=== PATIENT | female | born 1960 | race African-American/Black ===

== ENCOUNTER 2019-11-02 09:27 | Emergency (ER) | payer OTHER, SELFPAY ==
[2019-11-02 09:33] VITALS: BP 132/89; PULSE 72; RESP 20; TEMP 36.3; O2SAT 99
--- NOTE | 2019-11-02 09:41 | ED.SKABFB ---
HPI - Skin/Abscess/Foreign Bdy General Chief complaint: Skin/Abscess/Foreign Body Stated complaint: boil on back Time Seen by Provider: 11/02/19 09:46 Source: patient Mode of arrival: ambulatory Limitations: no limitations History of Present Illness HPI narrative: PATIENT PRESENTS WITH TENDER AREA TO LEFT UPPER BACK. PATENT STATES HAS HAD AN ABSCESS REMOVED FOR OPPOSITE SIDE 4 MONTHS AGO. NO DRAINAGE NO STREAKING. NO FEVER PATIENT DENIES ANY HISTORY OF DIABETES. Related Data Home Medications Medication Instructions Recorded Confirmed risperidone 3 mg PO DAILY 11/02/19 11/02/19 trazodone 50 mg PO HS 11/02/19 11/02/19 Allergies Allergy/AdvReac Type Severity Reaction Status Date / Time ibuprofen Allergy Hives Verified 11/02/19 09:46 Review of Systems Review of Systems: Narrative: CONSTITUTIONAL: Denies fever, chills, or sweats. EYES: Denies visual changes, redness, or discharge. ENT: Denies rhinorrhea, congestion, sore throat, or otalgia. CARDIOVASCULAR: Denies chest pain, palpitations, or edema. RESPIRATORY: Denies cough or dyspnea. GASTROINTESTINAL: Denies abdominal pain, nausea, vomiting, or diarrhea. GENITOURINARY: Denies dysuria or hematuria. SKIN: Denies rash or itching. Tender area to left upper back MUSCULOSKELETAL: Denies back pain, joint pain, or myalgia. NEUROLOGIC: Denies headache, numbness, or weakness. PSYCHIATRIC: Denies anxiety or depression. PMFSH Comments At time of signature, agree with nursing past medical, surgical, social and family history. There is no relevant family history pertinent to the presenting complaint Exam Narrative: Exam Narrative: GENERAL: Well-appearing, well-nourished, and in no acute distress. HEAD: Normocephalic, atraumatic. EYES: PERRLA and EOMI. ENT: Nares clear, no rhinorrhea or epistaxis. Mucous membranes moist. NECK: Supple. CHEST: Clear to auscultation. No respiratory distress. HEART: Regular rate and rhythm. No murmur heard. Normal peripheral pulses. ABDOMEN: Soft, nontender, nondistended, normal active bowel sounds. EXTREMITIES: Normal range of motion. No edema. SKIN: Warm, dry, no rash.3 CM AREA OF REDNESS AND TENDERNESS TO LEFT UPPER BACK BELOW SCAPULA. NO INJURATION NO FLUCTUANCE NO INDICATION FOR i&d NEURO: No focal deficits. Alert and oriented x3. Mele Coma Scale Eye Opening: Spontaneous 4 [place] Coma Scale Motor: Obeys Commands 6 [place] Coma Scale Verbal: Oriented 5 [place] Coma Scale Total 15 Course Vital Signs Vital signs: Vital Signs Temperature 36.3 C L 11/02/19 09:33 Pulse Rate 72 11/02/19 09:33 Respiratory Rate 20 11/02/19 09:33 Blood Pressure 132/89 11/02/19 09:33 Pulse Oximetry 99 11/02/19 09:33 Temperature 36.3 C L 11/02/19 09:33 Pulse Rate 72 11/02/19 09:33 Respiratory Rate 20 11/02/19 09:33 Blood Pressure 132/89 11/02/19 09:33 Pulse Oximetry 99 11/02/19 09:33 Addressed elevated BP today. Today's blood pressure higher than recommended range. Discussed importance of follow -up with PCP and possible bed bug exterminator effects/cardiovascular events related to HTN. Currently patient denies headache, dizziness, vision changes, CP or shortness of breath. MDM - Skin/Abscess/Foreign Bdy Differential Diagnosis Differential diagnosis: Likely abscess of skin or subcutaneous tissue, dermatophytosis, eczema, insect bites and impetigo Critical Care Time Critical Care Time Critical Care Time: No Discharge Plan Discharge Clinical Impression: Abscess of skin or subcutaneous tissue Patient Disposition: Home, Self-Care Condition: Stable Instructions: Antibiotic Form Additional Instructions: Warm compresses to the area 20-30 minutes 4-6 times a day and as needed elevate the area if possible antibiotic as directed--finish the medicine tylenol for pain watch for increasing infection--redness, swelling, drainage if the wound was packed--remove the packing in 2 days follow up with PCP in 2-4 days for a
== END 2019-11-02 09:55 | disposition home or self-care (01) ==
PROVIDERS: Emergency Provider Nurse Practitioner Family; PCP Family Medicine
DX: L02.212 Cutaneous abscess of back [any part, except buttock and flank] (principal); F32.9 Major depressive disorder, single episode, unspecified
CPT/HCPCS: 99213; G0463

== ENCOUNTER 2021-05-24 17:09 | Emergency (ER) | payer OTHER, SELFPAY ==
[2021-05-24 17:15] VITALS: BP 148/81; PULSE 74; RESP 20; TEMP 37.1; O2SAT 100
--- NOTE | 2021-05-24 17:26 | ED.FEMALEGU ---
HPI - Female Genitourinary General Chief complaint: Urogenital-Female Stated complaint: Urinary Problem Time Seen by Provider: 05/24/21 17:26 Source: patient History of Present Illness HPI Narrative: URINARY FREQUENCY AND URGENCY FOR THE PAST 2 DAYS. NO GROSS HEMATURIA NO FLANK PAIN MD elicited complaint: dysuria and UTI Related Data Home Medications Medication Instructions Recorded Confirmed trazodone 50 mg PO HS 11/02/19 05/24/21 fluticasone propion-salmeterol 2 inh INHALATION BID 05/24/21 05/24/21 [Wixela Inhub] risperidone 2 mg PO DAILY 05/24/21 05/24/21 Allergies Allergy/AdvReac Type Severity Reaction Status Date / Time ibuprofen Allergy Mild Hives Verified 05/24/21 17:18 Review of Systems Review of Systems: CONSTITUTIONAL: Denies fever, chills, or sweats. EYES: Denies visual changes, redness, or discharge. ENT: Denies rhinorrhea, congestion, sore throat, or otalgia. CARDIOVASCULAR: Denies chest pain, palpitations, or edema. RESPIRATORY: Denies cough or dyspnea. GASTROINTESTINAL: Denies abdominal pain, nausea, vomiting, or diarrhea. GENITOURINARY: Denies dysuria or hematuria. SKIN: Denies rash or itching. MUSCULOSKELETAL: Denies back pain, joint pain, or myalgia. NEUROLOGIC: Denies headache, numbness, or weakness. PSYCHIATRIC: Denies anxiety or depression. PMFSH Comments At time of signature, agree with nursing past medical, surgical, social and family history. There is no relevant family history pertinent to the presenting complaint Exam Narrative: GENERAL: Well-appearing, well-nourished, and in no acute distress. HEAD: Normocephalic, atraumatic. EYES: PERRLA and EOMI. ENT: Nares clear, no rhinorrhea or epistaxis. Mucous membranes moist. NECK: Supple. CHEST: Clear to auscultation. No respiratory distress. HEART: Regular rate and rhythm. No murmur heard. Normal peripheral pulses. ABDOMEN: Soft, nontender, nondistended, normal active bowel sounds. EXTREMITIES: Normal range of motion. No edema. SKIN: Warm, dry, no rash. NEURO: No focal deficits. Alert and oriented x3. Mele Coma Scale Eye Opening: Spontaneous 4 [place] Coma Scale Motor: Obeys Commands 6 [place] Coma Scale Verbal: Oriented 5 [place] Coma Scale Total 15 Course Vital Signs Vital signs: Vital Signs Temperature 37.1 C 05/24/21 17:15 Pulse Rate 74 05/24/21 17:15 Respiratory Rate 20 05/24/21 17:15 Blood Pressure 148/81 H 05/24/21 17:15 Pulse Oximetry 100 05/24/21 17:15 Temperature 37.1 C 05/24/21 17:30 Pulse Rate 74 05/24/21 17:30 Respiratory Rate 20 05/24/21 17:30 Blood Pressure 148/81 H 05/24/21 17:30 Pulse Oximetry 100 05/24/21 17:30 MDM - Female Genitourinary Differential Diagnosis Differential diagnosis: Likely urinary tract infection, bacterial vaginosis, trichomoniasis, cervicitis, ovarian cyst, vaginitis, cyst of Bartholin's gland, cystitis and dysmenorrhea Lab Data Labs: Urine Glucose Negative Reference Range: Negative Urine Glucose Negative Reference Range: Negative Urine Bilirubin Negative Reference Range: Negative Urine Bilirubin Negative Reference Range: Negative Urine Ketone Negative Reference Range: Negative Urine Ketone Negative Reference Range: Negative Urine Specific [place] 1.025 Reference Range:1.001-1.035 Urine Specific [place] 1.025 Reference Range:1.001-1.035 Urine Blood 3+
[2021-05-24 17:30] VITALS: BP 148/81; PULSE 74; RESP 20; TEMP 37.1; O2SAT 100
== END 2021-05-24 17:34 | disposition home or self-care (01) ==
PROVIDERS: Emergency Provider Nurse Practitioner Family; PCP Family Medicine
DX: N39.0 Urinary tract infection, site not specified (principal); F32.A Depression, unspecified
CPT/HCPCS: 81003; 87077; 87086; 87088; 87186; 99213; G0463